=== PATIENT | male | born 1955 | race Hispanic/Latino ===

== ENCOUNTER 2023-11-08 06:17 | Day surgery (SDC) | payer MEDICARE, MEDICAID ==
[2023-11-01 11:00] VITALS: BMI 29.9
[2023-11-08] MEDS ORDERED: Lidocaine 1% MPF 2 ML VIAL ONE (06:29)
[2023-11-08] MEDS ORDERED: EPINEPHrine 1 MG/ML VIAL ONE (06:37)
[2023-11-08] MEDS ORDERED: Bupivacaine 0.25% HCL 30 ML VIAL ONE (06:37)
[2023-11-08] MEDS ORDERED: Ondansetron PF 4 MG/2 ML Vial ONE (07:08)
[2023-11-08] MEDS ORDERED: Dexamethasone 20 MG/5 ML VIAL ONE (07:08)
[2023-11-08] MEDS ORDERED: Lidocaine 2% PF 5 ML VIAL ONE (07:08)
[2023-11-08] MEDS ORDERED: Rocuronium Bromide 10 MG/ML (10ML VIAL) ONE (07:08)
[2023-11-08] MEDS ORDERED: PROPOFOL 20 ML ONE (07:08)
[2023-11-08] MEDS ORDERED: fentaNYL PF 100 MCG/2 ML SYRINGE ONE (07:08)
[2023-11-08] MEDS ORDERED: SUGAMMADEX SODIUM 200 MG/2 ML VIAL ONE (07:09)
[2023-11-08] MEDS ORDERED: CEFAZOLIN 2 GM VIAL ONE (07:11)
[2023-11-08] MEDS ORDERED: Sodium Chloride 0.9% 100 ML ONE (07:11)
[2023-11-08] MEDS ORDERED: Glycopyrrolate 0.2 MG/ML 5 ML SYRINGE ONE (07:31)
[2023-11-08] MEDS ORDERED: PHENYLEPHRINE-NS 100 MCG/ML 10 ML SYRINGE ONE (07:48)
[2023-11-08] MEDS ORDERED: ePHEDrine Sulfate 50 MG/10 ML VIAL ONE (07:53)
[2023-11-08] MEDS ORDERED: fentaNYL 50 mcg/mL 1 mL Vial ONE ×2 (09:24→10:04)
[2023-11-08] MEDS ORDERED: Acetaminophen 500 MG TAB ONE (10:52)
== END 2023-11-08 11:16 | disposition home or self-care (01) ==
LOC: SDC 06:17
PROVIDERS: ATTEND Surgery
PROC: 0WUF4JZ Supplement Abdominal Wall with Synthetic Substitute, Percutaneous Endoscopic Approach (ICD-10-PCS; principal; 2023-11-08)
DX: K43.9 Ventral hernia without obstruction or gangrene (principal); I10 Essential (primary) hypertension; I25.10 Atherosclerotic heart disease of native coronary artery without angina pectoris
CPT/HCPCS: 49593; A4314; C1781; J0171; J3010; J0665; J1100; J2001; J2405; J2704; J3490